=== PATIENT | female | born 1995 | race Caucasian/White ===

== ENCOUNTER 2017-05-19 08:17 | Day surgery (SDC) | payer OTHER ==
[2017-05-19] MEDS ORDERED: PROCHLORPERAZINE 10 MG/2 ML VIAL. IV PRN (08:30)
[2017-05-19] MEDS ORDERED: HYDROmorphone 2 MG/ML VIAL IV PRN (08:30)
[2017-05-19] MEDS ORDERED: fentaNYL PF VIAL 100 MCG/2 ML VIAL IV PRN ×2 (08:30)
[2017-05-19] MEDS ORDERED: ONDANSETRON PF 4 MG/2 ML VIAL. IV PRN (08:30)
[2017-05-19] MEDS ORDERED: LIDOCAINE 1% 1 ML SYRINGE. ID PRN (08:30)
[2017-05-19] MEDS ORDERED: MORPHINE SULFATE 2 MG/ML DISP.SYRIN. IV PRN (08:30)
[2017-05-19 08:37] LABS: NEG OBC UR NEG; POS OBC UR POS
[2017-05-19] MEDS ORDERED: IV RINGERS,LACTATED 1000ML 1,000 ML IV SCH (09:00)
[2017-05-19] MEDS ORDERED: MIDAZOLAM HCL/PF 2 MG/2 ML VIAL. ONE (10:04)
[2017-05-19] MEDS ORDERED: fentaNYL PF VIAL 100 MCG/2 ML VIAL ONE ×2 (10:04→10:50)
[2017-05-19] MEDS ORDERED: DEXAMETHASONE SOD PHOS 20 MG/5 ML VIAL. ONE (10:04)
[2017-05-19] MEDS ORDERED: ONDANSETRON PF 4 MG/2 ML VIAL. ONE (10:04)
[2017-05-19] MEDS ORDERED: LIDOCAINE 2% PF Vial for OR 5 ML VIAL. ONE (10:04)
[2017-05-19] MEDS ORDERED: PROPOFOL 20 ML IV ONE (10:04)
[2017-05-19] MEDS ORDERED: FAMOTIDINE 20 MG/2 ML VIAL ONE (10:04)
[2017-05-19] MEDS ORDERED: KETOROLAC 60 MG/2 ML INJ FOR OR. ONE (10:50)
[2017-05-19] MEDS ORDERED: PHENYLEPHRINE 10 MG/ML VIAL. ONE (11:00)
[2017-05-19] MEDS ORDERED: 0.9 % SODIUM CHLORIDE 50 ML VIAL. IJ ONE (11:01)
[2017-05-19] MEDS ORDERED: GLYCOPYRROLATE 1 MG/5 ML VIAL. ONE (11:11)
[2017-05-19] MEDS ORDERED: SEVOFLURANE 31 TO 60 MINUTES. IH ONE (11:21)
[2017-05-19] MEDS ORDERED: SEVOFLURANE 61 TO 120 MINUTES. IH ONE (11:21)
[2017-05-19] MEDS ORDERED: BUPIVACAINE-EPI 0.5%-1:200000 50 ML VIAL. INJ ONE (11:24)
--- NOTE | 2017-05-19 11:34 | PDOC ---
BRIEF OPERATIVE NOTE Date: May 19, 2017 Pre-Op Diagnosis enlarged ovarian cyst with pelvic pain and hormone imbalance with amenorrhea Post-Op Diagnosis same right ovarian cyst Procedure Performed operative scope with right ovarian cystectomy Surgeon Dr. Elida Norman Anesthesia Type: General Blood Loss 25cc IV Fluid see anesthesia records Urine Output 300c straight cath prior to procedure Specimens Obtained right ovarian cyst wall Findings enlarged right ovarian cyst Complications none OPerative Note [id number] ELIDA NORMAN MD May 19, 2017 11:34
[2017-05-19] MEDS ORDERED: CALCIUM CARBONATE 500 MG TAB.CHEW PO PRN (11:45)
[2017-05-19] MEDS ORDERED: HYDROcodone/APAP 5/325MG 1 TAB TABLET PO PRN (11:45)
[2017-05-19] MEDS ORDERED: diphenhydrAMINE 50 MG/ML VIAL IV PRN (11:45)
[2017-05-19] MEDS ORDERED: MAG HYDROX/ALUMINUM HYD/SIMETH 30 ML ORAL.SUSP PO PRN (11:45)
[2017-05-19] MEDS ORDERED: SIMETHICONE 80 MG TAB.CHEW PO PRN (11:45)
[2017-05-19] MEDS ORDERED: 0.9 % SODIUM CHLORIDE 10 ML DISP.SYRIN. IV PRN (11:45)
[2017-05-19] MEDS ORDERED: NALOXONE 0.4 MG/ML VIAL. IV PRN (11:45)
[2017-05-19] MEDS ORDERED: diphenhydrAMINE HCL 25 MG CAPSULE PO PRN (11:45)
[2017-05-19] MEDS ORDERED: MEPERIDINE PF 25 MG/ML VIAL. IV PRN (12:15)
[2017-05-19] MEDS ORDERED: MEPERIDINE PF 25 MG/ML VIAL. ONE (12:15)
[2017-05-19] MEDS ORDERED: BUPIVAC MPF-EPI 0.5%-1:200000 30 ML VIAL. ONE (12:42)
[2017-05-19 12:43] VITALS: BP 99/46
--- NOTE | 2017-05-19 14:39 | OP ---
DATE OF SURGERY: 05/19/2017 PREOPERATIVE DIAGNOSES: Pelvic pain and enlarged ovarian cyst. POSTOPERATIVE DIAGNOSES: Pelvic pain and enlarged ovarian cyst. PROCEDURE: Operative laparoscopy and right ovarian cystectomy. SURGEON: Mary oNrman MD CUSTOMER LIAISON: OR personnel. ANESTHESIA: General. ESTIMATED BLOOD LOSS: 25 mL. URINE OUTPUT: With a straight cath was 300-400 mL of clear urine prior to starting. COMPLICATIONS: None. PATHOLOGY: Right ovarian cyst wall, drained over 120 mL of straw-colored fluid from the cyst and then went back and peeled the cyst wall, removed it and sent it for path. DESCRIPTION OF PROCEDURE: The patient was taken to the operating room and received general anesthesia. She was then placed in a dorsal lithotomy position in [facility]. Patient's abdomen and vagina were prepped and draped in the normal sterile fashion and a straight cath urine was done prior to starting. After a timeout was performed, a bivalve speculum was placed in the patient's vagina. A single tooth tenaculum was used to grasp the anterior lip of the cervix. The [employer] uterine manipulator was placed through the endocervical os, locked on the single tooth tenaculum and the bivalve speculum was then removed. Top gloves were discarded and changed. Attention was then turned to the abdomen where a small infraumbilical skin incision was made with the scalpel. A curved Clementina was used to dissect through the subcuticular layer to the fascia. A 5 mm Visiport was used to directly enter the abdominal cavity. Opening patient pressure was 2-3 mmHg. Carbon dioxide gas was used to then appropriately insufflate the abdominal cavity to maintain a pressure of 15 mmHg. The patient was placed in Trendelenburg position. Initially upon entry into the abdomen, all I could see was a huge cystic structure in the midline and you could not even tell immediately which side it originated from until I put in a suprapubic port, a 5 mm Ethicon disposable port, over her existing scar. It did indeed come from the right ovary. It was a septated but straw-colored fluid. I drained part of it and there was still another loculation of it that I drained and then I went in with the LigaSure Advance and cut some of the cyst wall off the ovary and peeled it and pulled it out, but before I could do this, I put a 5 mm right lower quadrant port under direct visualization after transilluminating the abdomen and picking an area clear of vessels a small incision was made and the 5 mm disposable Ethicon port was placed under direct visualization without difficulty. The 5 mm suprapubic port was removed and was actually used for the right lower quadrant port and I put in a 10/12 here because I could not get the tissue from the cyst wall through the 5 mm port. It was larger and I was thinking I was going to have to use an EndoCatch bag or even pull large pieces of tissue out. So I put a 12 port in where her incision was in the suprapubic area. Once I did this, I was able to get an atraumatic grasper to hold the ovary and the [place] was used to peel and I used the LigaSure Advance to cut and score the cyst wall around the ovary and then peel it off and take out big chunks and this was being passed off for permanent pathology. Again, I believe 120 mL of clear straw-colored fluid was obtained through the multiloculated enlarged cyst and then I peeled the cyst wall off and removed it as well. Once it was done, I irrigated her, made sure there was no active bleeding, cleared the cul-de-sac of any clots and debris and then I put Mary over the cyst wall on the right side. Once this was done, I moved the camera just to check the umbilical port, it was fine, moved it back. I removed the suprapubic port and the right lower quadrant port under direct visualization. They were hemostatic. Before doing that, I did examine the rest of the abdomen, which was grossly normal. I found her appendix, her right upper quadrant liver area, everything was normal. There was no bleeding. The cul-de-sacs were clear. So, I removed both the suprapubic and the right lower quadrant ports under direct visualization, they were hemostatic. Gas was released from the umbilical port. A #0 Vicryl stitch was put in the suprapubic port on the 1012 port and then all three port sites were closed with 4-0 nylon at the level of the skin and injected with a total of 10 mL of local. Once this was done, I removed the vaginal instruments. There was no active bleeding and she is being awakened from anesthesia. MARY NORMAN MD DR: SUE/laurita JOB#: [id number] / [id number]
--- NOTE | 2017-05-20 17:06 | PATHOLOGY ---
PATHOLOGY REPORT * * * * * * * * FINAL DIAGNOSIS: Segments of ovarian tissue, laparoscopic right ovarian cystectomy: - Follicular cyst. - Cystic follicles. (JPM:bon; 05/20/2017) COMMENT: There is no evidence of malignancy. REPORT ELECTRONICALLY SIGNED BY: Monster Ramos M.D. DATE/TIME: 05/20/2017 17:05 * * * * * * * * GROSS PATHOLOGY: The specimen is received in formalin, designated " Won Bazzi, right ovarian cyst" and consists of multiple, irregular, thin segments of pink whitman, somewhat translucent membranous appearing tissue, consistent with cyst wall. The specimen has an aggregate measurement of 4.0 x 3.7 x 1.7 cm. There are no areas of papillary change, nodularity or granularity identified grossly. Multiple technology sales representative sections are submitted in cassette A1. (JPM; 05/19/17) INITIAL CPT CODE(S): A; 76566 Professional services performed [place] [address] Technical services performed by [email or web address] at [address] [place] [address]. SPECIMEN(S) RECEIVED: A.Right ovarian cyst CLINICAL HISTORY: Right ovarian cyst PATIENT: WON BAZZI /AGE: 604/15/1995 (Age: 22) PATIENT #: [id number] ALT CASE #: SPECIMEN COLLECTION DATE: 05/19/2017 SPECIMEN RECEIVED DATE: 05/19/2017 [facility] - [address] [place] [address] - PHONE: [phone] * * * END OF REPORT * * *
== END 2017-05-19 13:18 | disposition home or self-care (01) ==
LOC: SURG 08:17
PROVIDERS: ATTEND Obstetrics & Gynecology
DX: N83.201 Unspecified ovarian cyst, right side (principal)
CPT/HCPCS: 58662; 81025; C1769; C1782; J1100; J1885; J2001; J2175; J2250; J2405; J2704; J3010; J3490; J7030; J7120; S0028; 88305